=== PATIENT | male | born 1970 | race African-American/Black ===

== ENCOUNTER → 2019-09-28 | Outpatient (CLI) | payer OTHER | LOC: M LABSMTC 10:46 | PROVIDERS: ATTEND Family Medicine | DX: Z11.59 Encounter for screening for other viral diseases (principal); Z20.828 Contact with and (suspected) exposure to other viral communicable diseases ==

== ENCOUNTER → 2024-12-21 | Outpatient (CLI) | payer OTHER | LOC: M EKG 11:39 | PROVIDERS: ATTEND Physician Assistant | DX: I49.1 Atrial premature depolarization (principal) ==

== ENCOUNTER → 2025-01-24 | Outpatient (CLI) | payer OTHER | LOC: M CARPUL 14:11 | PROVIDERS: ATTEND Physician Assistant | DX: R94.31 Abnormal electrocardiogram [ECG] [EKG] (principal); I48.91 Unspecified atrial fibrillation; I34.0 Nonrheumatic mitral (valve) insufficiency ==

== ENCOUNTER → 2025-03-12 | Outpatient (CLI) | payer OTHER | LOC: M OUTALCOH 09:19 | PROVIDERS: ATTEND Psychiatry & Neurology Psychiatry | DX: F10.20 Alcohol dependence, uncomplicated (principal); F12.20 Cannabis dependence, uncomplicated; F14.20 Cocaine dependence, uncomplicated ==

== ENCOUNTER → 2025-03-28 | Outpatient (REF) | payer OTHER ==
[2025-03-28 17:52] LABS: APPEARANCE, URINE HAZY (CLEAR); BACTERIA, URINE AUTO NEGATIVE (NEGATIVE); BILIRUBIN, URINE AUTO NEGATIVE (NEGATIVE); BLOOD, URINE BLOOD NEGATIVE (NEGATIVE); CALCIUM OXALATE CRYSTALS SMALL; GLUCOSE, URINE (UA) AUTO 1+ mg/dL (NEGATIVE); KETONE, URINE AUTO NEGATIVE (NEGATIVE); LEUKOCYTE ESTERASE, URINE AUTO NEGATIVE (NEGATIVE); MUCUS, URINE SMALL (NEGATIVE); NITRITE, URINE AUTO NEGATIVE (NEGATIVE); PROTEIN, URINE AUTO 2+ mg/dL (NEGATIVE); RBC, URINE AUTO 1 /HPF (0-3); SPECIFIC GRAVITY URINE AUTO 1.021 (1.002-1.035); SQUAMOUS EPITHELIAL CELL UR AU 1 /HPF (0-6); UROBILINOGEN, URINE AUTO 0.2 mg/dL (0.0-2.0); WBC, URINE AUTO 8 /HPF (0-3)
[2025-03-28 18:07] LABS: CREATININE, URINE 215.6 MG/DL; MALB URINE SIEMENS 167.0 MG/L; MAU/CREAT RATIO 77.4 MCG/MG (0.0-30.0)
[2025-03-28 19:26] LABS: GC DNA AMPLIFICATION NEGATIVE (NEGATIVE)
[2025-03-28 19:33] LABS: BASO # 0.1 10^3/uL (0.0-0.2); BASO % 0.8 % (0.0-1.0); EOS # 0.1 10^3/uL (0.0-0.5); EOS % 1.9 % (0.0-3.0); LYMPH # 2.0 10^3/uL (1.5-5.0); LYMPH % 32.5 % (24.0-44.0); MONO # 0.5 10^3/uL (0.0-0.8); MONO % 7.7 % (2.0-8.0); NEUTROPHILS # 3.5 10^3/uL (1.5-8.5); NEUTROPHILS % 56.9 % (36.0-66.0); PLATELET COUNT, AUTOMATED 298 10^3/uL (150-450)
[2025-03-28 19:58] LABS: ESTIMATED AVERAGE GLUCOSE 137.0 MG/DL (60-110)
[2025-03-28 20:02] LABS: ALT/SGPT 11.0 U/L (7.0-40); AST/SGOT 14.0 U/L (<34); CALCIUM LEVEL 9.1 MG/DL (8.5-10.1); CARBON DIOXIDE LEVEL 30.0 MMOL/L (20-31); CHLORIDE LEVEL 104.0 MMOL/L (98-107); CHOLESTEROL LEVEL 200.0 MG/DL (<200); CHOLESTEROL RISK RATIO 4.45 (<5); CREATININE FOR GFR 1.11 MG/DL (0.70-1.30); GLOMERULAR FILTRATION RATE 79.4 (>56); LDL CHOLESTEROL 116.7 MG/DL (<100); NON-HDL-C 155.1 MG/DL; POTASSIUM SERUM 3.9 MMOL/L (3.5-5.1); SODIUM LEVEL 145.0 MMOL/L (136-145); TRIGLYCERIDES LEVEL 192.0 MG/DL (<150)
== END ==
LOC: M SFHCLERA 11:40
PROVIDERS: ATTEND Internal Medicine
DX: Z11.3 Encounter for screening for infections with a predominantly sexual mode of transmission (principal); I10 Essential (primary) hypertension; E11.65 Type 2 diabetes mellitus with hyperglycemia

== ENCOUNTER 2025-04-18 09:49 | Outpatient (RCR) | payer OTHER | END 2025-04-20 | LOC: M OUTALCOH 09:49 | PROVIDERS: ATTEND Psychiatry & Neurology Psychiatry | DX: F10.20 Alcohol dependence, uncomplicated (principal); F12.20 Cannabis dependence, uncomplicated; F14.20 Cocaine dependence, uncomplicated | CPT/HCPCS: 99211; G0397 ==

== ENCOUNTER 2025-05-16 16:00 | Outpatient (RCR) | payer OTHER | END 2025-05-20 | LOC: M OUTALCOH 16:00 | PROVIDERS: ATTEND Psychiatry & Neurology Psychiatry | DX: F10.20 Alcohol dependence, uncomplicated (principal); F12.20 Cannabis dependence, uncomplicated; F14.20 Cocaine dependence, uncomplicated ==

== ENCOUNTER → 2025-06-20 | Outpatient (RCR) | payer OTHER | LOC: M OUTALCOH 05-23 10:55 | PROVIDERS: ATTEND Psychiatry & Neurology Psychiatry | DX: F10.20 Alcohol dependence, uncomplicated (principal); F12.20 Cannabis dependence, uncomplicated; F14.20 Cocaine dependence, uncomplicated ==